=== PATIENT | female | born 1980 | race Caucasian/White ===

== ENCOUNTER 2017-01-02 15:02 | Emergency (ER) | payer MEDICAID ==
[~2017-01-02] VITALS: Ht 154.9 cm; Wt 85.0 kg
[~2017-01-02 15:02] MED LIST: ALBU6.7H INH; FLUT1DIS3 INH; HYDR-523 PO; IPRA42SP2 BOTHNSTRLS; LEVO500T15 PO; PROAIR INH
[2017-01-02] MEDS ORDERED: PREDNISONE 20MG TABLET PO STA (15:54)
[2017-01-02] MEDS ORDERED: IPRATROPIUM BROMIDE (0.02%) 0.5MG/2.5ML NEB HHN STA (15:54)
[2017-01-02] MEDS ORDERED: ALBUTEROL (0.083%) 2.5MG/3ML NEB HHN STA (15:54)
[2017-01-02] MEDS ORDERED: ALBUTEROL (0.083%) 2.5MG/3ML NEB HHN NR (16:55)
[2017-01-02] MEDS ORDERED: IPRATROPIUM BROMIDE (0.02%) 0.5MG/2.5ML NEB HHN NR (16:55)
[2017-01-02 18:31] VITALS: BP 117/84
== END 2017-01-02 18:35 | disposition home or self-care (01) ==
LOC: ER 16:38
DX: J45.901 Unspecified asthma with (acute) exacerbation (principal); Z98.890 Other specified postprocedural states
CPT/HCPCS: 71010; 81025; 94640; 99284; J7512; J7611; Z7610

== ENCOUNTER 2018-06-25 23:56 | Inpatient (IN) | payer SELFPAY ==
[~2018-06-25] VITALS: Ht 154.9 cm; Wt 81.6 kg
[~2018-06-25 23:56] MED LIST changes: -LEVO500T15 PO; +LEVO500T2 PO
[2018-06-26] MEDS ORDERED: ALBUTEROL (0.083%) 2.5MG/3ML NEB HHN STA (00:01)
[2018-06-26] MEDS ORDERED: METHYLPREDNISOLONE SOD SUCC 125 MG/2 ML VIAL IV STA (00:01)
[2018-06-26] MEDS ORDERED: IPRATROPIUM BROMIDE (0.02%) 0.5MG/2.5ML NEB HHN STA (00:01)
[2018-06-26] MEDS ORDERED: MAGNESIUM 2 G PREMIX 50 ML IV ONE (00:15)
[2018-06-26 00:44] LABS: BASOPHILS % 0.7 % (0.0-2.0); EOSINOPHILS % 14.4 % (0.0-5.0); HEMOGLOBIN. 14.9 g/dL (12.0-16.0); LYMPHOCYTES % 42.6 % (20.0-50.0); MEAN CORPUSCULAR HEMOGLOBIN 28.9 pg (28.0-32.0); MEAN CORPUSCULAR VOLUME 87.3 fL (81.0-99.0); MEAN PLATELET VOLUME 10.1 fl (7.4-10.4); MONOCYTES % 7.5 % (2.0-8.0); NEUTROPHILS % 34.8 % (40.0-76.0); PLATELET 302 x1000/uL (130-400); RED BLOOD CELL COUNT 5.15 mill/uL (4.2-5.4); RED CELL DISTRIBUTION WIDTH 13.9 % (11.6-14.6)
[2018-06-26 00:48] LABS: CHLORIDE 106 mEq/L (98-107)
[2018-06-26 00:50] LABS: PROTHROMBIN TIME 9.8 sec (9.1-11.1)
[2018-06-26] MEDS ORDERED: ALBUTEROL (0.5%) 2.5MG/0.5ML NEB HHN ONE (01:22)
[2018-06-26 02:48] LABS: BG BASE EXCESS -6.5 mmol/L (-2.0-2.0); BG CARBOXYHEMOGLOBIN 0.4 % (0.5-1.5); BG DEOXYHEMOGLOBIN 6.2 % (0.0-5.0); BG FRACTION INSPIRED OXYGEN 21; BG HCO3 ACT 17.9 mmol/L (22.0-26.0); BG METHEMOGLOBIN 0.3 % (0.0-1.5); BG OXYGEN SATURATION 93.8 % (92.0-98.5); BG OXYHEMOGLOBIN 93.1 % (94.0-97.0); BG PCO2 32.7 mmHg (35.0-45.0); BG PH 7.357 (7.350-7.450); BG PO2 72.7 mmHg (75.0-100.0); BG SAMPLE SITE RIGHT RADIAL; BG TOTAL HEMOGLOBIN 13.8 g/dL (12.0-18.0); BG VENT MODE ROOM AIR
[2018-06-26] MEDS ORDERED: LEVOFLOXACIN 500MG PREMIX 100 ML IV SCH (06:00)
[2018-06-26] MEDS ORDERED: ONDANSETRON HCL 4MG/2ML INJ IV PRN (06:00)
[2018-06-26] MEDS ORDERED: DOCUSATE SODIUM 100MG CAPSULE PO PRN (06:00)
[2018-06-26] MEDS ORDERED: GUAIFENESIN 200MG/10ML SUGAR FREE UDC PO PRN (06:00)
[2018-06-26] MEDS ORDERED: MORPHINE SULFATE 4 MG/ML CPJ (NOT FOR IM USE) IV PRN (06:00)
[2018-06-26] MEDS ORDERED: IPRATROPIUM/ALBUTEROL 0.5-3(2.5)MG/3ML NEB INH PRN (06:00)
[2018-06-26] MEDS ORDERED: CLONIDINE 0.1MG TABLET PO PRN (06:00)
[2018-06-26] MEDS ORDERED: NA PHOS,M-B/NA PHOS,DI-BA ENEMA 118ML PR PRN (06:00)
[2018-06-26] MEDS ORDERED: LORAZEPAM 2MG/ML CPJ IV PRN (06:00)
[2018-06-26] MEDS ORDERED: MAGNESIUM/ALUMINUM HYDROXIDE/SIMETHICONE 30ML UDC PO PRN (06:00)
[2018-06-26] MEDS ORDERED: DIPHENHYDRAMINE 50MG/ML VIAL IV PRN (06:00)
[2018-06-26] MEDS ORDERED: LEVOFLOXACIN 500MG PREMIX 100 ML IV NR (06:16)
[2018-06-26] MEDS: METHYLPREDNISOLONE SOD SUCC 125 MG/2 ML VIAL IV SCH ×3 (06:21→18:38)
[2018-06-26 06:46] LABS: CHLORIDE 110 mEq/L (98-107)
[2018-06-26 09:00] VITALS: BP 117/77
[2018-06-26] MEDS: ACETAMINOPHEN 325MG TABLET PO PRN ×2 (09:40→15:51)
[2018-06-26] MEDS: ASPIRIN 81MG EC TABLET PO SCH (09:41)
[2018-06-26] MEDS: ENOXAPARIN 40MG/0.4ML SYR SUBCUT SCH (09:42)
[2018-06-26 11:08] VITALS: BP 117/77
[2018-06-26 12:00] VITALS: BP 121/65
[2018-06-26] MEDS: IPRATROPIUM/ALBUTEROL 0.5-3(2.5)MG/3ML NEB HHN SCH ×2 (13:52→20:55)
[2018-06-26 16:00] VITALS: BP 111/61
[2018-06-26] MEDS: MONTELUKAST SODIUM 10MG TABLET PO SCH (18:38)
[2018-06-26] MEDS: HYDROCODONE/ACETAMINOPHEN 5/325MG TABLET PO PRN (19:08)
[2018-06-26 20:00] VITALS: BP 136/86
[2018-06-26] MEDS ORDERED: LORATADINE 10MG TABLET PO SCH (21:00)
[2018-06-26] MEDS: FAMOTIDINE 20MG/2ML VIAL IV SCH (21:22)
[2018-06-27] VITALS: BP 111/65
[2018-06-27] MEDS: METHYLPREDNISOLONE SOD SUCC 125 MG/2 ML VIAL IV SCH ×4 (00:53→17:07)
[2018-06-27] MEDS: IPRATROPIUM/ALBUTEROL 0.5-3(2.5)MG/3ML NEB HHN SCH ×4 (02:00→13:48)
[2018-06-27 04:00] VITALS: BP 118/76
[2018-06-27 05:44] LABS: HEMATOCRIT. 39.3 % (36.0-48.0); HEMOGLOBIN. 13.1 g/dL (12.0-16.0); MEAN CORPUSCULAR HEMOGLOBIN 28.8 pg (28.0-32.0); MEAN CORPUSCULAR VOLUME 86.4 fL (81.0-99.0); MEAN PLATELET VOLUME 10.4 fl (7.4-10.4); PLATELET 288 x1000/uL (130-400); RED BLOOD CELL COUNT 4.55 mill/uL (4.2-5.4); RED CELL DISTRIBUTION WIDTH 14.1 % (11.6-14.6)
[2018-06-27] MEDS ORDERED: LEVOFLOXACIN 500MG PREMIX 100 ML IV SCH (06:00)
[2018-06-27 06:29] LABS: CHLORIDE 108 mEq/L (98-107)
[2018-06-27 06:37] LABS: LDL CHOLESTEROL 92 mg/dL (5-100)
[2018-06-27 06:38] LABS: HDL CHOLESTEROL 48 mg/dL (40-59); T4 FREE 0.96 ng/dL (0.76-1.46)
[2018-06-27 08:00] VITALS: BP 125/69
[2018-06-27] MEDS: FAMOTIDINE 20MG/2ML VIAL IV SCH (08:24)
[2018-06-27] MEDS: ASPIRIN 81MG EC TABLET PO SCH (08:24)
[2018-06-27] MEDS: HYDROCODONE/ACETAMINOPHEN 5/325MG TABLET PO PRN (08:25)
[2018-06-27] MEDS: ENOXAPARIN 40MG/0.4ML SYR SUBCUT SCH (08:25)
[2018-06-27 12:00] VITALS: BP 113/68
[2018-06-27 14:07] LABS: PLATELET ESTIMATE NORMAL
[2018-06-27 16:00] VITALS: BP 130/86
[2018-06-27 16:57] VITALS: BP 130/86
[2018-06-27] MEDS: MONTELUKAST SODIUM 10MG TABLET PO SCH (17:07)
== END 2018-06-27 17:39 | disposition home or self-care (01) | DRG 133 ==
LOC: ER 23:56 → EDBEDREQ 06-26 01:33 → 5WST 06-26 02:13 → EDBEDREQTM 06-26 02:22 → EDBEDREQ 06-26 02:22 → ENRESERV 06-26 07:51
PROVIDERS: ADMIT Internal Medicine; ATTEND Internal Medicine
DX: J96.01 Acute respiratory failure with hypoxia (principal); J45.901 Unspecified asthma with (acute) exacerbation; G43.909 Migraine, unspecified, not intractable, without status migrainosus; F12.90 Cannabis use, unspecified, uncomplicated; E87.6 Hypokalemia; Z79.899 Other long term (current) drug therapy; Z98.891 History of uterine scar from previous surgery
CPT/HCPCS: 36415; 36600; 71045; 80048; 80053; 80061; 82375; 82805; 83880; 84439; 84443; 84484; 85025; 85610; 93005; 96365; 96366; 96368; 96375; 99285; J1650; J1956; J2930; J3475; J3490; J7050; J7611; J7620

== ENCOUNTER 2020-11-18 06:35 | Inpatient (IN) | payer OTHER, MEDICAID ==
[~2020-11-18] VITALS: Ht 160 cm; Wt 97.2 kg
[~2020-11-18 06:35] MED LIST changes: -ALBU6.7H INH; +ALBU6.7H11 INH
[2020-11-18] MEDS ORDERED: IPRATROPIUM BROMIDE (0.02%) 0.5MG/2.5ML NEB HHN STA (06:50)
[2020-11-18] MEDS: ALBUTEROL (0.083%) 2.5MG/3ML NEB HHN SCH (06:50)
[2020-11-18] MEDS ORDERED: METHYLPREDNISOLONE SOD SUCC 125 MG/2 ML VIAL IV STA (06:50)
[2020-11-18] MEDS ORDERED: SODIUM CHLORIDE 0.9% 1,000 ML IV ONE ×2 (07:00)
[2020-11-18] MEDS ORDERED: EPINEPHRINE 1:1000 1 MG/ML AMP IM ONE (07:00)
[2020-11-18] MEDS ORDERED: MAGNESIUM 2 G PREMIX 50 ML IV ONE (07:00)
[2020-11-18] MEDS ORDERED: IPRATROPIUM BROMIDE (0.02%) 0.5MG/2.5ML NEB ONE (07:03)
[2020-11-18] MEDS ORDERED: ALBUTEROL (0.083%) 2.5MG/3ML NEB ONE (07:03)
[2020-11-18 07:23] LABS: BASOPHILS % 0.6 % (0.0-2.0); EOSINOPHILS % 10.9 % (0.0-5.0); HEMOGLOBIN. 13.7 g/dL (12.0-16.0); LYMPHOCYTES % 33.4 % (20.0-50.0); MEAN CORPUSCULAR HEMOGLOBIN 28.3 pg (28.0-32.0); MEAN CORPUSCULAR VOLUME 84.6 fL (81.0-99.0); MEAN PLATELET VOLUME 9.2 fl (7.4-10.4); MONOCYTES % 8.9 % (2.0-8.0); NEUTROPHILS % 46.2 % (40.0-76.0); PLATELET 355 x1000/uL (130-400); PROTHROMBIN TIME 10.4 sec (9.6-11.0); RED BLOOD CELL COUNT 4.85 mill/uL (4.2-5.4); RED CELL DISTRIBUTION WIDTH 14.2 % (11.6-14.6)
[2020-11-18 07:25] LABS: CHLORIDE 106 mEq/L (98-107)
[2020-11-18 07:29] LABS: ETHANOL BLOOD < 10 mg/dL
[2020-11-18 07:42] LABS: HCG SCREEN NEGATIVE
[2020-11-18] MEDS ORDERED: MORPHINE SULFATE 4 MG/ML CPJ (NOT FOR IM USE) IV STA (07:58)
[2020-11-18] MEDS ORDERED: ONDANSETRON HCL 4MG/2ML INJ IV STA (07:58)
[2020-11-18 11:00] VITALS: BP 142/86
[2020-11-18 11:48] LABS: BG BASE EXCESS -8.3 mmol/L (-2.0-2.0); BG CARBOXYHEMOGLOBIN 0.1 % (0.5-1.5); BG FRACTION INSPIRED OXYGEN 50; BG HCO3 ACT 20.4 mmol/L (22.0-26.0); BG METHEMOGLOBIN 0.4 % (0.0-1.5); BG OXYHEMOGLOBIN 95.5 % (94.0-97.0); BG PCO2 55.6 mmHg (35.0-45.0); BG PH 7.183 (7.350-7.450); BG PO2 92.4 mmHg (75.0-100.0); BG SAMPLE SITE RIGHT RADIAL; BG TOTAL HEMOGLOBIN 13.8 g/dL (12.0-18.0); BG TOTAL RESPIRATORY RATE 28 b/min; BG VENT MODE MASK - BIPAP
[2020-11-18 12:00] VITALS: BP 142/86
[2020-11-18] MEDS ORDERED: DOCUSATE SODIUM 100MG CAPSULE PO PRN (12:00)
[2020-11-18] MEDS ORDERED: GUAIFENESIN 200MG/10ML SUGAR FREE UDC PO PRN (12:00)
[2020-11-18] MEDS ORDERED: ONDANSETRON HCL 4MG/2ML INJ IV PRN (12:00)
[2020-11-18] MEDS ORDERED: IPRATROPIUM/ALBUTEROL 0.5-3(2.5)MG/3ML NEB NEB PRN (12:00)
[2020-11-18] MEDS ORDERED: CLONIDINE 0.1MG TABLET PO PRN (12:00)
[2020-11-18] MEDS ORDERED: MAGNESIUM/ALUMINUM HYDROXIDE/SIMETHICONE 30ML UDC PO PRN (12:00)
[2020-11-18] MEDS ORDERED: LORAZEPAM 2MG/ML CPJ IV PRN (12:00)
[2020-11-18] MEDS ORDERED: HYDROCODONE/ACETAMINOPHEN 5/325MG TABLET PO PRN (12:00)
[2020-11-18] MEDS: IPRATROPIUM/ALBUTEROL 0.5-3(2.5)MG/3ML NEB NEB SCH ×3 (12:30→21:15)
[2020-11-18] MEDS: METHYLPREDNISOLONE SOD SUCC 125 MG/2 ML VIAL IV SCH ×2 (13:27→18:59)
[2020-11-18] MEDS: ENOXAPARIN 40MG/0.4ML SYR SUBCUT SCH (13:28)
[2020-11-18] MEDS ORDERED: KETOROLAC 15MG/ML VIAL IV PRN (13:30)
[2020-11-18] MEDS: LEVOFLOXACIN 500MG PREMIX 100 ML IV SCH (14:47)
[2020-11-18 16:00] VITALS: BP 120/68
[2020-11-18] MEDS ORDERED: MONT10TA21 MT (16:28)
[2020-11-18] MEDS ORDERED: P20 PO (16:28)
[2020-11-18] MEDS ORDERED: IOHEXOL-350 100 ML BOTTLE ONE (16:50)
[2020-11-18] MEDS ORDERED: PNEUMOCOCCAL 23-VAL P-SAC VAC 0.5 ML IM ONE (18:15)
[2020-11-18] MEDS ORDERED: INFLUENZA VACCINE 05/PF 0.5 ML VIAL IM ONE (18:15)
[2020-11-18 20:10] VITALS: BP 98/69
[2020-11-18] MEDS: ACETAMINOPHEN 325MG TABLET PO PRN (21:35)
[2020-11-19 00:03] VITALS: BP 111/79
[2020-11-19] MEDS: METHYLPREDNISOLONE SOD SUCC 125 MG/2 ML VIAL IV SCH ×3 (01:00→11:42)
[2020-11-19 04:03] VITALS: BP 111/58
[2020-11-19 06:53] LABS: HEMATOCRIT. 37.6 % (36.0-48.0); HEMOGLOBIN. 12.4 g/dL (12.0-16.0); MEAN CORPUSCULAR HEMOGLOBIN 27.9 pg (28.0-32.0); MEAN CORPUSCULAR VOLUME 84.5 fL (81.0-99.0); MEAN PLATELET VOLUME 9.1 fl (7.4-10.4); PLATELET 328 x1000/uL (130-400); RED BLOOD CELL COUNT 4.45 mill/uL (4.2-5.4); RED CELL DISTRIBUTION WIDTH 14.2 % (11.6-14.6)
[2020-11-19 06:58] LABS: CHLORIDE 108 mEq/L (98-107)
[2020-11-19 07:00] VITALS: BP 117/79
[2020-11-19] MEDS: ACETAMINOPHEN 325MG TABLET PO PRN (07:18)
[2020-11-19 10:26] VITALS: BP 117/79
[2020-11-19] MEDS: ENOXAPARIN 40MG/0.4ML SYR SUBCUT SCH (11:43)
[2020-11-19 12:00] VITALS: BP 97/50
[2020-11-19] MEDS: LEVOFLOXACIN 500MG PREMIX 100 ML IV SCH (15:08)
[2020-11-19 21:25] LABS: PLATELET ESTIMATE NORMAL
[2020-11-19] MEDS ORDERED: ENOXAPARIN 30MG/0.3ML SYR SUBCUT SCH (22:00)
[2020-11-20] MEDS ORDERED: LEVOFLOXACIN 500MG TABLET PO SCH (11:00)
== END 2020-11-19 14:54 | disposition home or self-care (01) | DRG 189 ==
LOC: ER 07:03 → 3WST 09:17 → EDBEDREQTM 09:18 → EDBEDREQ 09:18 → ENRESERV 09:55
PROVIDERS: ADMIT Hospitalist; ATTEND Hospitalist
PROC: 5A09357 Assistance with Respiratory Ventilation, Less than 24 Consecutive Hours, Continuous Positive Airway Pressure (ICD-10-PCS; principal; 2020-11-18)
DX: J96.01 Acute respiratory failure with hypoxia (principal); J45.901 Unspecified asthma with (acute) exacerbation; F12.90 Cannabis use, unspecified, uncomplicated; F17.210 Nicotine dependence, cigarettes, uncomplicated; I10 Essential (primary) hypertension; K76.0 Fatty (change of) liver, not elsewhere classified; Z98.891 History of uterine scar from previous surgery; Z79.1 Long term (current) use of non-steroidal anti-inflammatories (NSAID); Z79.899 Other long term (current) drug therapy; Z79.51 Long term (current) use of inhaled steroids
CPT/HCPCS: 36415; 36600; 71045; 71275; 80053; 80320; 82375; 82805; 83880; 84484; 84703; 85025; 90686; 90732; 93005; 94640; 94660; 96365; 99291; J1650; J1956; J2270; J2405; J2930; J3475; J3490; J7030; J7040; Q9967; G0480

== ENCOUNTER 2021-07-16 22:19 | Emergency (ER) | payer OTHER, MEDICAID ==
[~2021-07-16] VITALS: Ht 160 cm; Wt 91.0 kg
[~2021-07-16 22:19] MED LIST changes: -ALBU6.7H11 INH; +ALBU6.7H15 INH; +MONT10TA21 MT; +P20 PO
[2021-07-16] MEDS ORDERED: TETANUS, DIPHTHERIA, PERTUSSIS VAC/PF 0.5ML (>10YR OLD) IM ONE (23:15)
[2021-07-16] MEDS ORDERED: ACETAMINOPHEN WITH CODEINE 300/30MG TABLET PO ONE (23:15)
[2021-07-16] MEDS ORDERED: BACITRACIN ZINC OINT UDPKT TOP ONE (23:15)
[2021-07-16] MEDS ORDERED: LIDOCAINE HCL/PF 1% 10 MG/ML 5ML VIAL INFIL ONE (23:15)
[2021-07-17] MEDS ORDERED: BO1 TP (00:29)
[2021-07-17] MEDS ORDERED: T3 PO (00:29)
[2021-07-17 00:42] VITALS: BP 123/76
== END 2021-07-17 00:42 | disposition home or self-care (01) ==
LOC: ER 22:19
DX: S61.216A Laceration without foreign body of right little finger without damage to nail, initial encounter (principal); J45.909 Unspecified asthma, uncomplicated; X58.XXXA Exposure to other specified factors, initial encounter; Y93.89 Activity, other specified; Y92.89 Other specified places as the place of occurrence of the external cause; Y99.8 Other external cause status; Z98.890 Other specified postprocedural states; Z79.899 Other long term (current) drug therapy
CPT/HCPCS: 12001; 90471; 90715; 99283; A4217; J3490; Z7610

== ENCOUNTER 2023-09-30 10:16 | Emergency (ER) | payer OTHER, MEDICAID ==
[~2023-09-30] VITALS: Ht 162.6 cm; Wt 65.0 kg
[~2023-09-30 10:16] MED LIST changes: +BO1 TP; +MONT-46 MT; -MONT10TA21 MT; +T3 PO
[2023-09-30 10:24] VITALS: TEMP 98
[2023-09-30] MEDS ORDERED: METHYLPREDNISOLONE SOD SUCC 125MG/2ML (ACT-O-VIAL) IV STA (10:46)
[2023-09-30] MEDS ORDERED: ALBUTEROL (0.083%) 2.5MG/3ML NEB HHN STA (10:46)
[2023-09-30] MEDS ORDERED: MAGNESIUM 2 G PREMIX 50 ML IV STA (10:46)
[2023-09-30] MEDS ORDERED: IPRATROPIUM BROMIDE (0.02%) 0.5MG/2.5ML NEB HHN STA (10:46)
[2023-09-30] MEDS ORDERED: SODIUM CHLORIDE 0.9% 1,000 ML IV ONE (11:00)
[2023-09-30 11:25] VITALS: PULSE 88; RESP 24; O2SAT 96
[2023-09-30] MEDS ORDERED: ALBU6.7H15 INH (14:09)
[2023-09-30] MEDS ORDERED: MONT-46 MT (14:09)
[2023-09-30] MEDS ORDERED: P50 MT (14:09)
[2023-09-30] MEDS ORDERED: FLUT1DIS3 INH (14:09)
[2023-09-30 14:13] VITALS: BP 125/69; PULSE 77
== END 2023-09-30 14:45 | disposition home or self-care (01) ==
LOC: ER 10:16
DX: J45.901 Unspecified asthma with (acute) exacerbation (principal); Z98.890 Other specified postprocedural states
CPT/HCPCS: 94644; 96365; 96375; 99285; J3475; J2930; Z7610 ×3; J7030